=== PATIENT | male | born 1995 | race Asian ===

== ENCOUNTER 2018-03-25 20:12 | Emergency (ER) | payer BC, OTHER ==
--- NOTE | 2018-03-25 22:44 | ED Physician Documentation ---
PD HPI HEAD INJURY - Stated complaint Stated Complaint: FACE INJ - Chief complaint Chief Complaint: Laceration - History obtained from History obtained from: Patient - History of Present Illness Mechanism of head injury: Laceration (grinding disc broke off and struck him in face, just deflecting off his protective eyewear.) Timing - onset: Today Location of injury: Right Quality of pain: Aching Associated symptoms: No: LOC, AMS, Nausea / vomiting Symptoms worsen with: Palpation Similar symptoms before: Has not had sx before Recently seen: Not recently seen Review of Systems Eyes: denies: Loss of vision, Decreased vision, Photophobia Neurologic: denies: Focal weakness, Numbness, Near syncope PD PAST MEDICAL HISTORY - Past Medical History Cardiovascular: None Respiratory: None - Present Medications Home Medications: Ambulatory Orders Medication Instructions Recorded Confirmed No Known Home Medications 03/25/18 03/25/18 - Allergies Allergies/Adverse Reactions: Allergies Allergy/AdvReac Type Severity Reaction Status Date / Time No Known Drug Allergies Allergy Verified 03/25/18 20:20 PD ED PE NORMAL - Vitals Vital signs reviewed: Yes - General General: Alert and oriented X 3, No acute distress, Well developed/nourished - HEENT HEENT: PERRL, EOMI, Pharynx benign, Other (right cheek upper, below the eyelid with horizontal lac 1.5 cm without FB, but edges are apart and it goes to fatty layer, suggesting need for suturing. ) - Cardiac Cardiac: RRR, No murmur - Respiratory Respiratory: Clear bilaterally - Neuro Neuro: No motor deficit, No sensory deficit (normal eyelid movement and normal sensation lower cheek and lip. ) Results - Vitals Vitals: Oxygen O2 Source Room air Procedures - Laceration (location) right upper cheek Length in cm: 1.5 Wound type: Linear, Into subcut fat, Clean Neurovascular status: Sensory intact, Motor intact Anesthesia: Lidocaine 1% with epi Wound Preparation: Irrigated copiously NS, Wound explored, To the base. No: FB identified Skin layer closure: Nylon, Running, Size #-0 - enter number (6) Other: Patient tolerated well, No complications, Neurovascular intact, Dressing applied, Tetanus UTD Complexity: Simple PD MEDICAL DECISION MAKING - ED course Complexity details: considered differential, d/w patient Departure - Departure Disposition: 01 Home, Self Care Clinical Impression: Facial laceration Qualifiers: Encounter type: initial encounter Qualified Code(s): S01.81XA - Laceration without foreign body of other part of head, initial encounter Condition: Stable Record reviewed to determine appropriate education?: Yes Instructions: ED Laceration Facial Sutr Tape Comments: It is okay to wash and shower. Clean off the wound twice a day with soap and water, or peroxide and water. Apply some antibiotic ointment to it to keep it moist. Also to watch for signs of infection such as purulence, redness or increasing pain. Return to your primary care or the ER at the specified time for suture removal. Suture removal 7-8 days. Tylenol or ibuprofen if needed for pains. Discharge Date/Time: 03/25/18 23:43
[2018-03-25 23:43] VITALS: BP 121/74
== END 2018-03-25 23:43 | disposition home or self-care (01) ==
LOC: ED 20:12
DX: S01.411A Laceration without foreign body of right cheek and temporomandibular area, initial encounter (principal); W22.8XXA Striking against or struck by other objects, initial encounter
CPT/HCPCS: 12011; 99282; 99283

== ENCOUNTER 2020-07-30 12:18 | Emergency (ER) | payer BC, OTHER ==
[2020-07-30 12:39] VITALS: BP 123/69
[2020-07-30] MEDS ORDERED: PROPARACAINE 0.5% OPHTH DROPS 15 ML EACHEYE STA (13:01)
--- OUTSIDE RECORDS SUMMARY | 2020-07-30 13:04 | EXTERNAL MEDICAL SUMMARY RPT | Continuity of Care Document ---
:1995 Demographics Phone Unavailable Preferred Language Unknown Marital Status Unknown Mu-Ism Affiliation Unknown Race Unknown Ethnic Group Unknown Author Organization [facility] Address [address] [place] [address] Phone Social History date description facility [phone]
--- NOTE | 2020-07-30 13:25 | ED Physician Documentation ---
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 Attempts at urgent care were made to get it out but it is still there. No eye problems. Review of Systems Constitutional: denies: Fever, Chills, Myalgias Eyes: denies: Decreased vision Ears: denies: Loss of hearing, Ear pain Nose: denies: Rhinorrhea / runny nose, Congestion PD PAST MEDICAL HISTORY - Past Medical History Cardiovascular: None Respiratory: None - Past Surgical History Past Surgical History: No - Present Medications Home Medications: Ambulatory Orders Medication Instructions Recorded Confirmed No Known Home Medications 03/25/18 03/25/18 - Allergies Allergies/Adverse Reactions: Allergies Allergy/AdvReac Type Severity Reaction Status Date / Time No Known Drug Allergies Allergy Verified 07/30/20 12:36 - Social History Does the pt smoke?: No Smoking Status: Never smoker Does the pt drink ETOH?: Yes Does the pt have substance abuse?: No - Immunizations Immunizations are current?: Yes PD ED PE NORMAL - Vitals Vital signs reviewed: Yes - General General: Alert and oriented X 3, No acute distress - HEENT HEENT: PERRL, EOMI, Other (Central metallic foreign body with rust ring) - Neck Neck: Supple, no meningeal sign, No bony TTP - Neuro Neuro: Alert and oriented X 3, Normal speech - Psych Psych: Normal mood, Normal affect Results - Vitals Vitals: Vital Signs - 24 hr 07/30/20 12:36 Temperature 36.6 C Heart Rate 66 Respiratory 16 Rate Blood Pressure 123/69 O2 Saturation 100 Oxygen O2 Source Room air Procedures - FB removal FB location: Other (L cornea) Removal method: Other (After the administration of proparacaine with a 30-gauge needle the metallic foreign body was removed but rust ring remained.) Departure - Departure Disposition: 01 Home, Self Care Clinical Impression: Corneal foreign body with residual material Qualifiers: Encounter type: initial encounter Laterality: left Qualified Code(s): T15.02XA - Foreign body in cornea, left eye, initial encounter Condition: Good Record reviewed to determine appropriate education?: Yes Instructions: ED Foreign Body Cornea W Rust Ring Follow-Up: Mariano Flores MD [Provider Admit Priv/Credential] - Comments: Call Dr. Flores's office tomorrow, I texted him so the office should be aware of you. Plan to see him in the next few days for reevaluation and potential foreign body rust ring removal. Continue erythromycin ointment.
== END 2020-07-30 13:53 | disposition home or self-care (01) ==
LOC: ED 12:18
DX: T15.02XA Foreign body in cornea, left eye, initial encounter (principal); X58.XXXA Exposure to other specified factors, initial encounter; Y93.89 Activity, other specified; Y92.009 Unspecified place in unspecified non-institutional (private) residence as the place of occurrence of the external cause
CPT/HCPCS: 65220; 99282; 99283; J3490

== ENCOUNTER 2020-11-12 08:00 | Outpatient (CLI) | payer BC | END 2020-11-12 23:59 | disposition home or self-care (01) | LOC: LAB.N 08:00 | PROVIDERS: ATTEND Nurse Practitioner | DX: U07.1 COVID-19 (principal) | CPT/HCPCS: 87070 ==